=== PATIENT | male | born 1990 | race American Indian/Alaskan Native ===

== ENCOUNTER 2017-06-07 14:04 | Emergency (ER) | payer MEDICAID ==
[2017-06-07 14:16] VITALS: BP 106/74
--- NOTE | 2017-06-07 17:19 | Emergency Department Report ---
Chief Complaint: Dental/Oral Stated Complaint: JAW ABSCESS - HPI History of Present Illness: Mr. Cole presents with wisdom tooth pain. Patient has large facial abscess at the angle of the right mandible. - Exam Vital Signs: Vital Signs 06/07/17 14:11 Temperature 98.6 F Pulse Rate 94 H Respiratory 16 Rate Blood Pressure 106/74 O2 Sat by Pulse 96 Oximetry MSE screening note: Focused history and physical exam performed. Due to findings the following was ordered: ED Disposition for MSE Condition: Stable
[2017-06-07 19:43] LABS: BUN/Creatinine Ratio 11; Blood Urea Nitrogen 9 mg/dL (9-20); Calcium 9.4 mg/dL (8.4-10.2); Hemolysis Index 18
[2017-06-07 20:16] LABS: Hematocrit 44.2 % (35.5-45.6); Hemoglobin 14.2 gm/dl (11.8-15.2); Mean Corpuscular HGB Conc 32 % (32-34); Mean Corpuscular Hemoglobin 27 pg (28-32); Mean Corpuscular Volume 83 fl (84-94); Platelet Count 434 K/mm3 (140-440); Red Blood Count 5.31 M/mm3 (3.65-5.03); Red Cell Distribution Width 13.7 % (13.2-15.2)
--- NOTE | 2017-06-07 20:41 | Cat Scan Report ---
FINAL REPORT PROCEDURE: CT NECK W CON TECHNIQUE: Computerized axial tomography of the soft tissue neck was performed following the IV injection of iodinated nonionic contrast. HISTORY: face neck abscess COMPARISON: No prior studies are available for comparison. FINDINGS: There is a loculated fluid collection identified in the right lateral mandibular soft tissues. This measures 3.9 x 4.2 x 4.5 centimeters. A loculated abscess in this region is noted. Surrounding soft tissue swelling with cellulitis is identified. The osseous structures are intact without fracture. No osseous destruction is noted. The nasopharynx and oropharynx are normal. The epiglottis and valleculae are normal. The visualized portion of the airway is patent. The thyroid gland is normal. The submandibular and parotid salivary glands are normal. No significant adenopathy is noted at this time. The vasculature appears normal. IMPRESSION: Loculated fluid collection consistent with an abscess a right lateral mandibular soft tissues measures 3.9 x 4.2 x 4.5 centimeters. There is surrounding soft tissue swelling and findings consistent with cellulitis.
[2017-06-07] MEDS ORDERED: PERCOCET 5/325 PO ONE (20:55)
[2017-06-07] MEDS ORDERED: ZOFRAN ODT PO ONE (20:55)
[2017-06-07] MEDS ORDERED: NACL 0.9% 1000 ML 1,000 ML IV ONE (20:55)
--- NOTE | 2017-06-07 20:55 | Emergency Department Report ---
ED Female HPI - General Chief complaint: Dental/Oral Stated complaint: JAW ABSCESS Time Seen by Provider: 06/07/17 20:41 Source: patient Mode of arrival: Ambulatory Limitations: No Limitations - Related Data Allergies Allergy/AdvReac Type Severity Reaction Status Date / Time No Known Allergies Allergy Verified 06/07/17 14:11 ED Review of Systems ROS: Stated complaint: JAW ABSCESS Other details as noted in HPI ED Past Medical Hx - Past Medical History Previous Medical History?: No - Surgical History Past Surgical History?: No - Social History Smoking Status: Never Smoker Substance Use Type: None ED Physical Exam - General Limitations: No Limitations ED Course Vital Signs 06/07/17 14:11 Temperature 98.6 F Pulse Rate 94 H Respiratory 16 Rate Blood Pressure 106/74 O2 Sat by Pulse 96 Oximetry ED Medical Decision Making - Lab Data Result diagrams: 06/07/17 19:50 06/07/17 18:16 Critical care attestation.: If time is entered above; I have spent that time in minutes in the direct care of this critically ill patient, excluding procedure time. ED Disposition Condition: Stable Referrals: PRIMARY CARE [Primary Care Provider] - 3-5 Days
--- NOTE | 2017-06-07 20:57 | Emergency Department Report ---
HPI - General Chief Complaint: Dental/Oral Time Seen by Provider: 06/07/17 20:41 - HPI HPI: Patient presented to the emergency room with complaints of abscess and right cheek. He reported therefore Y then he went to his dentist who has been treated him with Keflex. He said it got worse and he went back to his dentist and his dentist said "what is that on your face'',. Patient denies any dental pain. He reports pain is 10 out of 10 on his cheek. Denies any sore throat or drooling. Denies any similar issues. Denies any fever or chills. Denies any nausea or vomiting. Patient able to open and close his mouth but he said it's painful with opening his mouth. Denies any medical problems ED Past Medical Hx - Past Medical History Previous Medical History?: Yes Hx HIV: Yes - Surgical History Past Surgical History?: No - Family History Family history: no significant - Social History Smoking Status: Never Smoker Substance Use Type: None - Medications Home Medications: Home Medications Medication Instructions Recorded Confirmed Last Taken Type Acetaminophen/Codeine [Tylenol 1 tab PO Q6H PRN #12 tab 06/07/17 Unknown Rx /Codeine # 3 tab] Doxycycline [Vibramycin CAP] 100 mg PO Q12HR 10 Days #20 capsule 06/07/17 Unknown Rx Ibuprofen [Motrin] 600 mg PO Q8H PRN #15 tablet 06/07/17 Unknown Rx Sulfamethoxazole/Trimethoprim 1 each PO Q12H 10 Days #20 tablet 06/07/17 Unknown Rx [Bactrim Ds Tablet] ED Review of Systems ROS: Stated complaint: JAW ABSCESS Other details as noted in HPI Comment: All other systems reviewed and negative Constitutional: no symptoms reported Eyes: denies: eye pain, eye discharge ENT: denies: ear pain, throat pain, dental pain, hearing loss, congestion Respiratory: no symptoms reported Cardiovascular: denies: chest pain, palpitations, dyspnea on exertion, edema, syncope, paroxysmal nocturnal dyspnea Gastrointestinal: denies: abdominal pain, nausea, vomiting Genitourinary: denies: urgency, dysuria, hematuria Musculoskeletal: denies: back pain, joint swelling, arthralgia, myalgia Skin: other (abscess right facial area) Neurological: denies: headache, numbness, confusion, abnormal gait, vertigo Physical Exam - Physical Exam Vital Signs: Vital Signs 06/07/17 14:11 Temperature 98.6 F Pulse Rate 94 H Respiratory 16 Rate Blood Pressure 106/74 O2 Sat by Pulse 96 Oximetry Vital Signs 06/07/17 06/07/17 14:11 21:14 Temperature 98.6 F Pulse Rate 94 H Respiratory 16 18 Rate Blood Pressure 106/74 O2 Sat by Pulse 96 Oximetry General: This is a 27-year-old male well-nourished well-developed in no acute distress Physical Exam: Head: Normocephalic, atraumatic, no abrasion, no bruising and no contusion. Eyes: Biateral pupils equal and reactive to light, bilateral EOM intact.. Bilateral conjunctival and sclera without injection, normal accommodation. No nystagmus Mouth: Moist, no pharyngeal exudate or erythema. No peritonsillar abscesses. Uvula is midline and oral airways patent. Patient with minimal dental caries with no oral abscess noted. No tenderness to palpate around gumline. Skim/Face: 4x 5 cm fluctuant and indurated area with surrounding cellulitis noted to Rt mandibular area. No drainage noted. Tender to palpate. Patient able to open and closes mouth without any difficulties. No bony abnormality or tenderness Ears: Bilateral TM pearly gloria Lateral TM Bilateral EAC without any redness swelling or drainage. No mastoid bone tenderness Nose: Bilateral nasal turbinates normal. No drainage. No frontal or maxillary sinus tenderness Neck: Supple, No Cervical adenopathy, full range of motion and no C-spine tenderness. No swelling or tracheal deviation normal reflexes Cardiovascular: S1, S2. Regular rate and rhythm. No murmur. Capillary refill is less then 3 seconds. Lungs: Clear to auscultate bilaterally. No rhonchi, wheezes or rales. No chest wall tenderness. No chest contusion. No bruising to chest. MSK: Strength 5/5 in all extremities. No joint deformity or crepitus. Normal inspection. Full range of motion to all extremities. No laceration, abrasion or ecchymotic area noted. Abdomen: Non-tender to palpate in all quadrants, no guarding or rebound tenderness, positive bowel sounds in all quadrants. No CVA tenderness. No hernia, bruit or mass. No rigidity or distention. Extremities: No clubbing, cyanosis or edema. +2 pulses. No neurovascular compromise Psych: Normal mood and behavior ED Course Vital Signs 06/07/17 14:11 Temperature 98.6 F Pulse Rate 94 H Respiratory 16 Rate Blood Pressure 106/74 O2 Sat by Pulse 96 Oximetry Vital Signs 06/07/17 06/07/17 14:11 21:14 Temperature 98.6 F Pulse Rate 94 H Respiratory 16 18 Rate Blood Pressure 106/74 O2 Sat by Pulse 96 Oximetry - Reevaluation(s) Reevaluation #1: 06/07/17 22:08 Patient received clindamycin 900 mg IV, normal saline 1 L 1, Toradol 30 mg IV and Zofran 4 mg ODT along with Percocet 5/325 2 tablets by mouth for abscess, face. See procedure note for details on incision and drainage ED Medical Decision Making - Lab Data Result diagrams: 06/07/17 19:50 06/07/17 18:16 Lab Results 06/07/17 06/07/17 Range/Units 18:16 19:50 WBC 15.9 H (4.5-11.0) K/mm3 RBC 5.31 H (3.65-5.03) M/mm3 Hgb 14.2 (11.8-15.2) gm/dl Hct 44.2 (35.5-45.6) % MCV 83 L (84-94) fl MCH 27 L (28-32) pg MCHC 32 (32-34) % RDW 13.7 (13.2-15.2) % Plt Count 434 (140-440) K/mm3 Lymph % (Auto) Web Site Project Manager Harris % (Auto) Web Site Project Manager Eos % (Auto) Web Site Project Manager Baso % (Auto) Web Site Project Manager Lymph # Web Site Project Manager Harris # Web Site Project Manager Eos # Web Site Project Manager Baso # Web Site Project Manager Seg Neutrophils % Web Site Project Manager Seg Neutrophils # Web Site Project Manager Sodium 138 (137-145) mmol/L Potassium 5.1 H (3.6-5.0) mmol/L Chloride 94.7 L (98-107) mmol/L Carbon Dioxide 25 (22-30) mmol/L Anion Gap 23 mmol/L BUN 9 (9-20) mg/dL Creatinine 0.8 (0.8-1.5) mg/dL Estimated GFR > 60 ml/min BUN/Creatinine Ratio 11 % Glucose 62 L (75-100) mg/dL Calcium 9.4 (8.4-10.2) mg/dL Wound culture collected and sent. - Radiology Data CT scan neck with 3 x 9 x 4 x 2 x 4 x 5 cm loculated abscess in mandibular area. Surrounding soft tissue swelling with cellulitis notified. The osseous structures are intact without fracture. No osseous destruction is noted nasopharynx and oropharynx are normal. No epiglottitis. Thyroid gland is normal. Submandibular and parotid saliva every glands are normal. No adenopathy and normal vasculature - Medical Decision Making ED course: Patient here complaining of abscess to his lower right facial area and he's been seen by a dentist and placed an antibiotic which he said he completed and went back to dentist to have a tooth pulled but when the dentist saw his face and asked him "what is that on your face". Patient said he came to the emergency room and CT scan of the neck found patient with right lateral mandibular soft tissue with loculated fluid collection consistent with abscess also cellulitis. Please see radiology section for complete CT scan result. CBC reveals patient with white count of 15.9, platelet is normal and differential standing. CMP with patient potassium of 5.1 and blood glucose 62. Patient drank several cups of juice in the emergency room without any problems. Incision and drainage procedure done to facial abscess. I asked patient if he was HIV positive due to location of abscess and small amount of secretion contaminated my forearm while was doing procedure. He said no that he said yes. Finally said that he is HIV positive and has been for a year with no follow-up. He is not taking any medication. I discussed the patient that it is in his best interest to let healthcare provider know that he is HIV positive when he comes to the hospital since laboratory profile so could reflect him needing an admission with his HIV positive status. He voiced understanding. I also discussed his diagnosis, lab results and CT findings. Patient was given normal saline 1 L suspect this will correct mild hyperkalemia . He was given Percocet 5/325 2 tablets and Zofran 4 mg ODT which helped his pain. Patient also given normal saline 1 L, Toradol 30 mg IV and clindamycin 900 mg IV. I discussed the patient he will need to take Bactrim and doxycycline for broad coverage of abscess and cellulitis to his face. I also discussed with him that he needs to follow-up with [facility] since he does not have a primary care physician and also have them refer him to infectious disease to manage his HIV. He agrees. Patient discharged home a prescription for Bactrim, doxycycline, Motrin and Tylenol No. 3. Critical care attestation.: If time is entered above; I have spent that time in minutes in the direct care of this critically ill patient, excluding procedure time. ED Disposition Clinical Impression: History of HIV infection, Abscess or cellulitis of cheek, Encounter for incision and drainage procedure Disposition: TO HOME OR SELFCARE Is pt being admited?: No Does the pt Need Aspirin: No Condition: Stable Instructions: Cellulitis (ED), Abscess Incision and Drainage (ED) Additional Instructions: Take antibiotic as prescribed Follow-up with your primary care physician in 2 days and if you do not have a primary care physician please follow-up at [facility] who will also refer you to infectious disease doctor Followed discharge instruction on acute wound care . Please return to the emergency room in 2 days for reevaluation if he cannot get in with outside Medical Center Please return to emergency room if you develop increasing redness, streaking, fever, difficulty moving in opening and closing mouth. Keep affected area keep clean and dry and apply warm compresses the site 3-4 times a day Prescriptions: Acetaminophen/Codeine [Tylenol /Codeine # 3 tab] 1 tab PO Q6H PRN #12 tab PRN Reason: Pain, Moderate (4-6) Doxycycline [Vibramycin CAP] 100 mg PO Q12HR 10 Days #20 capsule Ibuprofen [Motrin] 600 mg PO Q8H PRN #15 tablet PRN Reason: Pain Sulfamethoxazole/Trimethoprim [Bactrim Ds Tablet] 1 each PO Q12H 10 Days #20 tablet Referrals: PRIMARY CARE, [Primary Care Provider] - 06/11/17 [facility] [Outside] - 06/11/17 return to ,emergency room [Other] - 06/11/17 Forms: Accompanied Note, Work/School Release Form(ED)
[2017-06-07] MEDS ORDERED: CLEOCIN 900 MG/50 mL 900 MG/50 ML BAG IV ONE (20:59)
[2017-06-07] MEDS ORDERED: TORADOL IV ONE (20:59)
[2017-06-07] MEDS ORDERED: MARCAINE 0.5% INFILTRATI ONE (21:20)
== END 2017-06-07 22:34 | disposition home or self-care (01) ==
LOC: ED 14:04
DX: L02.01 Cutaneous abscess of face (principal); Z21 Asymptomatic human immunodeficiency virus [HIV] infection status
CPT/HCPCS: 10060; 36415; 70491; 80048; 85025; 87116; 96365; 96375; 99284; J1885; J7030; Q9967; Q0162

== ENCOUNTER 2017-06-09 15:05 | Emergency (ER) | payer MEDICAID ==
--- NOTE | 2017-06-09 19:07 | Emergency Department Report ---
Chief Complaint: Laceration/Recheck/Suture Stated Complaint: TOOTH ABCESS Time Seen by Provider: 06/09/17 18:26 - HPI History of Present Illness: Pt is a 27 yo male here for recheck of right facial abscess; Pt states he was here 2 weeks ago s/p incision and drainage of the right mandibular wound and accidentally pulled out the gauze the same day it was placed. Pt states the wound is improving and is closing. Pt states that he is taking his antibiotics. - ROS Review of Systems: ROS: all systems reviewed neg except as noted per HPI - Exam Vital Signs: Vital Signs 06/09/17 15:09 Temperature 98.6 F Pulse Rate 81 Respiratory 18 Rate Blood Pressure 106/69 O2 Sat by Pulse 100 Oximetry Physical Exam: PE: awake, alert and in no respiratory distress HEENT: eomi, perrl; mmm right mandibular abscess healing ; no active pus drainage; wound almost closed; 2x2 cm abscess right mandible MSE screening note: Focused history and physical exam performed. Due to findings the following was ordered: ED Disposition for MSE Disposition: DC-01 TO HOME OR SELFCARE Is pt being admited?: No Does the pt Need Aspirin: No Condition: Stable Instructions: Abscess (ED) Additional Instructions: be sure to apply warm compresses to the area return sooner if worse or if further concerns be sure to take the antibiotics until complete Referrals: [facility] [Outside] - 3-5 Days
[2017-06-09 19:38] VITALS: BP 117/82
== END 2017-06-09 19:38 | disposition home or self-care (01) ==
LOC: ED 15:05
DX: L02.01 Cutaneous abscess of face (principal)
CPT/HCPCS: 99282